=== PATIENT | male | born 1950 | race Caucasian/White ===

== ENCOUNTER 2019-12-08 15:11 | Outpatient (CLI) | payer BC ==
[2019-12-09] MEDS ORDERED: LACT1CAP35 PO (07:09)
[2019-12-09] MEDS ORDERED: DABI150C PO (07:09)
[2019-12-09] MEDS ORDERED: LEVO100T5 PO (07:09)
[2019-12-09] MEDS ORDERED: LEVE500T8 PO (07:09)
[2019-12-09] MEDS ORDERED: PRED5TAB PO (07:09)
[2019-12-09] MEDS ORDERED: AMIO200T42 PO (07:09)
== END 2019-12-08 23:59 | disposition home or self-care (01) ==
LOC: CFH 15:11
PROVIDERS: ATTEND Internal Medicine Cardiovascular Disease
DX: I08.0 Rheumatic disorders of both mitral and aortic valves (principal); I26.99 Other pulmonary embolism without acute cor pulmonale; I48.92 Unspecified atrial flutter
CPT/HCPCS: 93306

== ENCOUNTER 2019-12-09 06:29 | Day surgery (SDC) | payer BC ==
[~2019-12-09] VITALS: Ht 198.1 cm; Wt 109.1 kg
[2019-12-09] MEDS ORDERED: SODIUM CHLORIDE 0.9% 1,000 ML IV SCH ×2 (06:51→07:00)
[2019-12-09 06:57] VITALS: BP 119/97
[2019-12-09] MEDS ORDERED: LEVO100T5 PO (07:09)
[2019-12-09] MEDS ORDERED: LACT1CAP35 PO (07:09)
[2019-12-09] MEDS ORDERED: LEVE500T8 PO (07:09)
[2019-12-09] MEDS ORDERED: PRED5TAB PO (07:09)
[2019-12-09] MEDS ORDERED: DABI150C PO (07:09)
[2019-12-09] MEDS ORDERED: AMIO200T42 PO (07:09)
[2019-12-09 07:14] LABS: BASOPHILS # (AUTO) 0.06 x10^3/uL (0-0.1); BASOPHILS % (AUTO) 1 % (0-1); EOSINOPHILS # (AUTO) 0.14 x10^3/uL (0-0.4); EOSINOPHILS % (AUTO) 3 % (1-7); LYMPHOCYTES # (AUTO) 1.03 x10^3/uL (1-3.4); LYMPHOCYTES % (AUTO) 18 % (22-44); MD NO; MEAN CORPUSCULAR HEMOGLOBIN 30.8 pg (27.5-34.5); MEAN CORPUSCULAR HGB CONC 32.8 g/dL (33.2-36.2); MEAN CORPUSCULAR VOLUME 93.9 fL (81-97); MEAN PLATELET VOLUME 7.3 fL (7.4-10.4); MONOCYTES # (AUTO) 0.33 x10^3/uL (0.2-0.8); MONOCYTES % (AUTO) 6 % (2-9); NEUTROPHILS # (AUTO) 4.08 x10^3/uL (1.8-6.8); NEUTROPHILS % (AUTO) 72 % (42-75); PLATELET COUNT 301 x10^3/uL (130-400); RED BLOOD COUNT 4.26 x10^6/uL (4.38-5.82); RED CELL DISTRIBUTION WIDTH 15.6 % (9.4-14.8)
[2019-12-09 07:25] LABS: ANION GAP 6 mmol/L (5-15); CALCIUM 8.7 mg/dL (8.5-10.1); CHLORIDE 112 mmol/L (98-107)
[2019-12-09 07:26] LABS: CREATININE 1.01 mg/dL (0.7-1.3)
[2019-12-09] MEDS ORDERED: LIDOCAINE 1%, 20ML ONE (07:40)
[2019-12-09] MEDS ORDERED: FENTANYL PF 250 MCG/5ML ONE (07:52)
[2019-12-09] MEDS ORDERED: MIDAZOLAM 1 MG/ML, 5ML ONE (07:52)
[2019-12-09] MEDS ORDERED: ACETAMINOPHEN 325 MG TABLET PO PRN (09:30)
[2019-12-09] MEDS ORDERED: LEVETIRACETAM 500 MG TABLET PO SCH (21:00)
[2019-12-09] MEDS ORDERED: DABIGATRAN 150 MG CAPSULE PO SCH ×2 (21:00)
[2019-12-10] MEDS ORDERED: AMIODARONE 200 MG TABLET PO SCH (09:00)
[2019-12-10] MEDS ORDERED: LEVOTHYROXINE 100 MCG TABLET PO SCH (09:00)
[2019-12-10] MEDS ORDERED: TEMPLATE NON-FORMULARY MED. (Lactobacillus Acidophilus** (Probiotic**) 1 TAB) PO SCH (09:00)
== END 2019-12-09 14:16 | disposition home or self-care (01) ==
LOC: CACL 06:29
PROVIDERS: ATTEND Internal Medicine Cardiovascular Disease
DX: I48.92 Unspecified atrial flutter (principal); I48.91 Unspecified atrial fibrillation; E03.9 Hypothyroidism, unspecified; F17.210 Nicotine dependence, cigarettes, uncomplicated; E66.3 Overweight; Z68.27 Body mass index [BMI] 27.0-27.9, adult; Z79.01 Long term (current) use of anticoagulants; Z79.890 Hormone replacement therapy; Z79.899 Other long term (current) drug therapy; Z86.711 Personal history of pulmonary embolism; Z86.718 Personal history of other venous thrombosis and embolism; Z88.8 Allergy status to other drugs, medicaments and biological substances; Z98.890 Other specified postprocedural states; Z82.49 Family history of ischemic heart disease and other diseases of the circulatory system; Z82.3 Family history of stroke
CPT/HCPCS: 36415; 71046; 80048; 85025; 93312; 93321; 93325; 93613; 93621; 93653; C1730; C1766; C1894; C2630; J3010; 99156; 99157; J2250